=== PATIENT | male | born 1985 | race American Indian/Alaskan Native ===

== ENCOUNTER 2016-08-07 19:15 | Emergency (ER) | payer MEDICAID, OTHER ==
[~2016-08-07] VITALS: Ht 180.3 cm; Wt 115.8 kg
[2016-08-07] MEDS ORDERED: ONDANSETRON 2MG/ML, 2ML ONE (19:48)
[2016-08-07 19:55] LABS: HEMOGLOBIN 15.9 g/dL (13.7-18.0)
[2016-08-07] MEDS ORDERED: ONDANSETRON 2MG/ML, 2ML IVPush ONE (20:00)
[2016-08-07] MEDS ORDERED: SODIUM CHLORIDE 0.9% 1,000ML IVBOLUS ONE (20:00)
[2016-08-07] MEDS ORDERED: SODIUM CHLORIDE FLUSH 10ML SYR IVF ONE (20:00)
[2016-08-07 20:08] LABS: ASPARTATE AMINO TRANSFERASE 91 U/L (15-37); BLOOD UREA NITROGEN 5 mg/dL (7-18)
[2016-08-07] MEDS ORDERED: THIAMINE 100 MG in SODIUM CHLORIDE 0.9% 50 ML IVPB ONE (20:30)
[2016-08-07] MEDS ORDERED: LORazepam 2 MG/ML, 1ML IVPush PRN (20:30)
[2016-08-07] MEDS ORDERED: LORazepam 2 MG/ML, 1ML ONE (20:53)
[2016-08-07 23:05] VITALS: BP 109/51
== END 2016-08-07 23:33 | disposition home or self-care (01) ==
LOC: ED 20:30
DX: F10.239 Alcohol dependence with withdrawal, unspecified (principal); Y90.9 Presence of alcohol in blood, level not specified; I10 Essential (primary) hypertension; F17.210 Nicotine dependence, cigarettes, uncomplicated
CPT/HCPCS: 36415; 73564; 80053; 83690; 85025; 96361; 96365; 96366; 96375; 99285; J2060; J2405; J3411; J7030

== ENCOUNTER 2018-07-27 06:46 | Emergency (ER) | payer MEDICAID ==
[~2018-07-27] VITALS: Ht 180.3 cm; Wt 114.6 kg
[2018-07-27 06:51] VITALS: BP 140/85
--- NOTE | 2018-07-27 07:01 | NUR ---
FIRST CONTACT WITH PT. Pt states, "I am dehydrated, I havn't drank water in a week due to my alcohol addiction. I got tired of walking and I came here."
[2018-07-27] MEDS ORDERED: LISI-167 PO (07:07)
--- NOTE | 2018-07-27 07:09 | NUR ---
Pt has steady gait and balance ambulating to use phone to notify family he is here.
--- NOTE | 2018-07-27 07:10 | NUR ---
Pt had one episode of emesis moderate amount, bile, after PO challenge. ED MD aware.
[2018-07-27] MEDS ORDERED: ONDANSETRON 2MG/ML, 2ML ONE (07:11)
[2018-07-27] MEDS ORDERED: THIAMINE 100 MG/ML, 2ML ONE (07:11)
--- NOTE | 2018-07-27 07:23 | NUR ---
Pt eloped ED before recieving medication per [facility], without signing AMA paperwork, and without discharge paperwork or perscription.
--- NOTE | 2018-07-27 07:24 | NUR ---
Pt ambulated with steady gait and balance. No defecits observed. Pt left with all personal belongings.
[2018-07-27] MEDS ORDERED: ONDANSETRON 2MG/ML, 2ML IM ONE (07:30)
[2018-07-27] MEDS ORDERED: THIAMINE 100 MG/ML, 2ML IM ONE (07:30)
[2018-07-27] MEDS ORDERED: THIAMINE 100MG TABLET PO ONE (07:30)
== END 2018-07-27 07:26 | disposition left against medical advice (07) ==
LOC: ED 07:20
DX: R11.10 Vomiting, unspecified (principal); F10.129 Alcohol abuse with intoxication, unspecified; E86.0 Dehydration; I10 Essential (primary) hypertension
CPT/HCPCS: 99281